=== PATIENT | female | born 1950 | race Caucasian/White ===

== ENCOUNTER 2019-10-02 11:48 | Emergency (ER) | payer MEDICARE, SELFPAY ==
[2019-10-02 11:47] VITALS: BP 125/81; PULSE 92; RESP 20; TEMP 37.1; O2SAT 97
--- NOTE | 2019-10-02 11:53 | ECG_ITS ---
Measurements Intervals Reserve Rate: 86 P: 43 ID: [id number] QRS: 4 QRSD: 96 T: 79 QT: 332 QTc: 398 Interpretive Statements SINUS RHYTHM NONSPECIFIC T-WAVE ABNORMALITY- ANT/INF LEADS BASELINE ARTIFACT- I, III, AVL, AVF BORDERLINE ECG Electronically Signed On 10-02-2019 12:43:31 CDT by Jakub Mcconnell D.O.
[2019-10-02 11:55] VITALS: BP 110/71; PULSE 90
[2019-10-02 11:56] VITALS: BP 115/73; PULSE 95
[2019-10-02 11:57] VITALS: BP 121/83; PULSE 98
[2019-10-02 12:30] LABS: Basophils Percent Auto 0.4 % (0.2-1.2); Eosinophils Absolute Auto 0.1 K/mm3 (0-0.3); Eosinophils Percent Auto 1.2 % (0-4.4); Immature Granulocyte Absolute 0.02 K/mm3 (0.00-0.031); Immature Granulocyte Percent A 0.2 % (0-0.5); Lymphocytes Absolute Auto 1.74 K/mm3 (0.9-3.2); Lymphocytes Percent Auto 19.3 % (18.3-44.2); Mean Corpuscular HGB Conc 32.5 g/dl (32-36); Mean Corpuscular Hemoglobin 30.2 pg (26-34); Mean Corpuscular Volume 92.8 fl (80-100); Mean Platelet Volume 9.6 fl (7.4-10.4); Monocytes Absolute Auto 0.4 K/mm3 (0.1-0.6); Monocytes Percent Auto 4.8 % (2.6-8.5); Neutrophils Absolute Auto 6.7 K/mm3 (1.3-6.7); Neutrophils Percent Auto 74.1 % (45.5-73.1); Platelet Count Result 277 k/mm3 (150-375); Red Blood Count 4.31 M/mm3 (4.2-5.4); Red Cell Distribution Width 13.2 % (11.5-14.5)
[2019-10-02 12:42] LABS: Blood Urea Nitrogen 22 mg/dL (7-17); Carbon Dioxide 27 mmol/L (22-30); Chloride 103 mmol/L (98-107); Estimated Glomerular Filt Rate > 60; Glucose 126 mg/dL (65-105); Potassium 3.8 mmol/L (3.4-5.0); Sodium 138 mmol/L (137-145)
--- NOTE | 2019-10-02 13:05 | ED.SYNCOPE ---
HPI - Syncope General Chief Complaint: Syncope Stated Complaint: SYNCOPE Time Seen by Provider: 10/02/19 12:47 History of Present Illness HPI narrative: Patient presents via EMS with her for a near syncopal episode at [facility]. She was done shopping and was in the checkout line when she felt hot. She thought she might faint so they brought her chair. Her blood pressure was 158 at the time. She had no visual changes or mental confusion. Her symptoms had decreased by the time EMS arrived, and her pressure was 129. She has no symptoms currently. She had a similar episode many years ago, when she fainted in the heat. She has not been sick in the last couple weeks. She takes medicine for her blood pressure and diabetes. She has had right knee replacement. She does not smoke drink or do drugs. She is a retired daycare worker. complaint: felt faint Onset (ago): hour(s) -: minutes(s) Prodromal symptoms: lightheaded Witnessed: Yes - by Bystander Context: standing up Current symptoms: none History: previous syncopal episode Treatments prior to arrival: none Related Data Home Medications Medication Instructions Recorded Confirmed atorvastatin 20 mg tablet 20 mg PO DAILY 03/14/19 08/21/19 lisinopril 20 mg tablet 20 mg PO DAILY 03/14/19 08/21/19 metformin 500 mg tablet,extended 1,000 mg PO QPM tablet 03/14/19 08/21/19 release 24 hr sertraline 50 mg tablet 50 mg PO DAILY 03/14/19 08/21/19 methocarbamol 500 mg tablet 500 mg PO TID PRN 04/17/19 08/21/19 Allergies Allergy/AdvReac Type Severity Reaction Status Date / Time codeine Allergy Unknown Unknown Verified 10/02/19 11:52 Review of Systems Review of Systems: Narrative: CONSTITUTIONAL: Denies fever, chills, or sweats. EYES: Denies visual changes, redness, or discharge. ENT: Denies rhinorrhea, congestion, sore throat, or otalgia. CARDIOVASCULAR: Denies chest pain, palpitations, or edema. RESPIRATORY: Denies cough or dyspnea. GASTROINTESTINAL: Denies abdominal pain, nausea, vomiting, or diarrhea. GENITOURINARY: Denies dysuria or hematuria. SKIN: Denies rash or itching. MUSCULOSKELETAL: Denies back pain, joint pain, or myalgia. NEUROLOGIC: Denies headache, numbness, or weakness. PSYCHIATRIC: Denies anxiety or depression. She is thirsty. [facility] Past Medical History Medical History (Updated 10/02/19 @ 13:12 by Kyra Juarez MD) Essential (primary) hypertension GERD (gastroesophageal reflux disease) Mixed hyperlipidemia Primary osteoarthritis of both knees Surgical History Surgical History (Updated 10/02/19 @ 13:09 by Kyra Juarez MD) History of right knee surgery Family History Family History (Updated 09/27/18 @ 10:59 by DOCTOR UNKNOWN) Mother Hypertension Family history of cardiovascular disease, Onset Age: 84 Father Patient's father is , Onset Age: 95 Acute myocardial infarction Social History Social History (Updated 10/02/19 @ 13:09 by Kyra Juarez MD) Smoking status: Former smoker Smoking end date: 05/01/77 Alcohol intake: never Substance use: never Exam Narrative: Exam Narrative: GENERAL: Well-appearing, well-nourished, and in no acute distress. Fozia lady in no distress. HEAD: Normocephalic, atraumatic. EYES: PERRLA and EOMI. ENT: Nares clear, no rhinorrhea or epistaxis. Mucous membranes moist. NECK: Supple. CHEST: Clear to auscultation. No respiratory distress. HEART: Regular rate and rhythm. No murmur heard. Normal peripheral pulses. ABDOMEN: Soft, nontender, nondistended, normal active bowel sounds. EXTREMITIES: Normal range of motion. No edema. SKIN: Warm, dry, no rash. NEURO: No focal deficits. Alert and oriented x3. PSYCH: Normal mood and affect. Course Reevaluation(s) Reevaluation #1: Reviewed the results with the patient and her . Encouraged her to keep water handy and follow-up with her primary care physician. Date: 10/02/19 Time: 13:15 Vital Signs Vital signs: Vital Si
[2019-10-02 13:22] VITALS: BP 127/80; PULSE 70; RESP 20; TEMP 36.7; O2SAT 99
== END 2019-10-02 13:23 | disposition home or self-care (01) ==
PROVIDERS: Emergency Medicine; Emergency Provider Emergency Medicine; PCP Family Medicine
DX: R55 Syncope and collapse (principal); I10 Essential (primary) hypertension; E11.9 Type 2 diabetes mellitus without complications; Z79.84 Long term (current) use of oral hypoglycemic drugs; Z96.651 Presence of right artificial knee joint; Z87.891 Personal history of nicotine dependence; K21.9 Gastro-esophageal reflux disease without esophagitis; E78.2 Mixed hyperlipidemia; M17.0 Bilateral primary osteoarthritis of knee; R94.31 Abnormal electrocardiogram [ECG] [EKG]
CPT/HCPCS: 36415; 80048; 85025; 93005; 99284

== ENCOUNTER 2020-07-07 08:07 | Outpatient (CLI) | payer MEDICARE, SELFPAY | END 2020-07-07 08:08 | disposition home or self-care (01) | LOC: ANHCOVIDVC 08:07 | PROVIDERS: PCP Family Medicine | DX: Z23 Encounter for immunization (principal) | CPT/HCPCS: 0001A; 91300 ==

== ENCOUNTER 2020-07-28 08:15 | Outpatient (CLI) | payer MEDICARE, SELFPAY | END 2020-07-28 08:16 | disposition home or self-care (01) | LOC: ANHCOVIDVC 08:15 | PROVIDERS: PCP Family Medicine | DX: Z23 Encounter for immunization (principal) | CPT/HCPCS: 0002A; 91300 ==

== ENCOUNTER → 2020-08-25 12:31 | Outpatient (CLI) | payer MEDICARE, SELFPAY ==
--- NOTE | ~2020-08-25 | MM_ITS ---
EXAMINATION: MM screening [facility] BI w salvatore HISTORY: Screening mammogram TECHNIQUE: Craniocaudal and mediolateral oblique 3-D tomosynthesis images were obtained and synthetic 2-D images were generated. CAD analysis was submitted and interpreted. COMPARISON: 12/17/2015, 08/06/2013 bilateral digital screening mammogram examinations BREAST PARENCHYMAL COMPOSITION: The breasts are almost entirely fatty. FINDINGS: There is no evidence of suspicious mass, calcification, or architectural distortion to sugg est malignancy in either breast. There has been no suspicious interval change. IMPRESSION: 1. No mammographic evidence of malignancy. 2. Recommend routine screening mammography in one year. BI-RADS Category 1: Negative Reviewed, dictated and finalized at location A.
--- NOTE | ~2020-08-25 | DEXA_ITS ---
Bone Density Report Name: Anjali Salgado Age: 69 Sex: Female Ethnicity: White Date of : 1950 Indication: postmenopausal; screening for osteoporosis; height loss; prior fracture; Referring Provider: Shantel Harris Study: Bone densitometry was performed. Exam Date: August 25, 2020 Accession number: [id number] Bone Density: Region BMD T-score Z-score Classification AP Spine (L1-L4) 1.101 0.5 2.5 Normal Femoral Neck (Left) 0.780 -0.6 1.1 Normal Total Hip (Left) 1.144 1.7 3.1 Normal Femoral Neck (Right) 0.718 -1.2 0.5 Osteopenia Total Hip (Right) 1.194 2.1 3.5 Normal Total Hip Mean 1.169 1.9 3.3 Normal World Health Organization criteria for BMD impression classify patients as: Normal (T-score at or above -1.0), Osteopenia (T-score between -1.0 and -2.5), or Osteoporosis (T-score at or below -2.5). 10-year Fracture Risk(1): Major Osteoporotic Fracture 13% Hip Fracture 1.3% Reported Risk Factors: [place] (), Neck BMD=0.718, BMI=36.2, previous fracture (1) FRAX(R) Version 3.08. Fracture probability calculated for an untreated patient. Fracture probability may be lower if the patient has received treatment. Previous Exams: Region Exam Age BMD T-score BMD Change BMD Change Date g/cm2 vs Baseline vs Previous AP Spine(L1-L4) 08/25/2020 69 1.101 0.5 0.076 0.012 12/17/2015 65 1.089 0.4 0.063 0.063 04/28/2010 59 1.025 -0.2 Total Hip(Left) 08/25/2020 69 1.144 1.7 -0.029 -0.032* 12/17/2015 65 1.176 1.9 0.003 0.003 04/28/2010 59 1.173 1.9 Total Hip(Right) 08/25/2020 69 1.194 2.1 -0.002 -0.007 12/17/2015 65 1.201 2.1 0.005 0.005 04/28/2010 59 1.196 2.1 *Denotes significance at 95% confidence level, LSC for AP Spine = 0.022 g/cm2, LSC for Total Hip = 0.027 g/cm2 Clinical Information Provided by Patient: Has had a low trauma fracture Has used the following medications: Vitamin D, Calcium, MTV Patient maximum height was 66.0 Menopause Age: 54 No regular weight bearing exercise Drinks caffeinated beverages Onset of menses at age 15 Number of children 3 Impression: The patient has low bone mass, based on the Right Femoral Neck T-score. The patient has an estimated ten-year risk of hip fracture of 1.3% and an estimated ten-year risk of major fracture of 13%, based on
== END ==
PROVIDERS: PCP Family Medicine; Visit Provider Obstetrics & Gynecology
DX: Z12.31 Encounter for screening mammogram for malignant neoplasm of breast (principal); Z13.820 Encounter for screening for osteoporosis; Z78.0 Asymptomatic menopausal state; M85.851 Other specified disorders of bone density and structure, right thigh
CPT/HCPCS: 77063; 77067; 77080

== ENCOUNTER 2020-12-27 13:08 | Outpatient (CLI) | payer MEDICARE, SELFPAY ==
--- NOTE | ~2020-12-27 | MR_ITS ---
EXAMINATION: MR hip LT wo con DATE: 12/27/2020 14:02 INDICATION: Left hip pain. Low back pain. TECHNIQUE: Magnetic resonance imaging (MRI) of the left hip was performed without intravenous contras t. Sequences included axial and coronal PD-weighted FS FSE and axial T1-weighted FSE of the pelvis. S equences of the hip included 2D FIESTA, T1-weighted fast GRE, and axial, coronal, and sagittal PD-ifeoma ghted FS FSE. COMPARISON: None FINDINGS: Bones/cartilage: There is 6 degrees lumbar levocurvature and moderate lumbar spondylosis. No fracture. The hip joints demonstrate mild osteoarthritis bilaterally. Small [id number] images of left hip demonstrate parti al thickness cartilage loss and marginal osteophytes. Labrum: There is a tear of left acetabular labrum. Fluid: There are small bilateral hip joint effusions. There is moderate bilateral trochanteric bursitis. Soft tissues: There are partial tears of the hamstring origins bilaterally. The iliopsoas tendons are normal. There are partial tears of the gluteus minimus and gluteus medius tendons bilaterally. The musculature is unremarkable. IMPRESSION: 1. Mild osteoarthritis of the hips. 2. Small bilateral hip joint effusions. 3. Moderate bilateral trochanteric bursitis. 4. Changes of prior partial tears of the bilateral gluteus minimus and medius muscles and hamstring t endon origins. Reviewed, dictated and finalized at location A. IMPRESSION: 1. Mild osteoarthritis of the hips. 2. Small bilateral hip joint effusions. 3. Moderate bilateral trochanteric bursitis. 4. Changes of prior partial tears of the bilateral gluteus minimus and medius m uscles and hamstring tendon origins.
== END 2020-12-27 13:09 | disposition home or self-care (01) ==
PROVIDERS: PCP Family Medicine
DX: M54.5 Low back pain (principal); M25.551 Pain in right hip; M16.0 Bilateral primary osteoarthritis of hip; M25.452 Effusion, left hip; M25.451 Effusion, right hip; M71.552 Other bursitis, not elsewhere classified, left hip; M71.551 Other bursitis, not elsewhere classified, right hip; S76.012A Strain of muscle, fascia and tendon of left hip, initial encounter; S76.011A Strain of muscle, fascia and tendon of right hip, initial encounter
CPT/HCPCS: 73721

== ENCOUNTER → 2021-09-16 14:48 | Outpatient (CLI) | payer MEDICARE, SELFPAY ==
--- NOTE | ~2021-09-16 | MM_ITS ---
EXAMINATION: MM screening [facility] BI w salvatore HISTORY: Screening mammogram TECHNIQUE: Craniocaudal and mediolateral oblique 3-D tomosynthesis images were obtained and synthetic 2-D images were generated. CAD analysis was submitted and interpreted. COMPARISON: 08/25/2020, 12/17/2015, 08/06/2013 BREAST PARENCHYMAL COMPOSITION: There are scattered areas of fibroglandular density. FINDINGS: There is no suspicious mass, calcification, or architectural distortion to suggest malignan cy in either breast. There has been no suspicious interval change. IMPRESSION: 1. No mammographic evidence of malignancy. 2. Recommend routine screening mammography in one year. BI-RADS Category 1: Negative Reviewed, dictated and finalized at location A.
== END ==
PROVIDERS: PCP Family Medicine; Visit Provider Obstetrics & Gynecology
DX: Z12.31 Encounter for screening mammogram for malignant neoplasm of breast (principal)
CPT/HCPCS: 77063; 77067

== ENCOUNTER → 2022-07-12 11:43 | Outpatient (CLI) | payer MEDICARE, SELFPAY ==
--- NOTE | ~2022-07-12 | XR_ITS ---
EXAM: XR foot RT min 3V DATE: 07/12/2022 11:58 HISTORY: M72.2 - Plantar fascial fibromatosis . COMPARISON: None available. FINDINGS: Decreased mineralization. No fracture or dislocation. No lytic or blastic lesion. Degenera tive change at the tibiotalar joint, first MTP joint, and multiple midfoot joints. Achilles and plant ar enthesopathy. No erosion or periosteal change. Focal calcification along the plantar fascia. IMPRESSION: Polyarticular osteoarthritis of the foot. Plantar enthesopathy and plantar calcification. Reviewed, dictated and finalized at location K.
== END ==
PROVIDERS: PCP Family Medicine; Visit Provider Family Medicine
DX: M72.2 Plantar fascial fibromatosis (principal); M19.071 Primary osteoarthritis, right ankle and foot
CPT/HCPCS: 73630

== ENCOUNTER → 2022-11-18 12:15 | Outpatient (CLI) | payer MEDICARE, SELFPAY ==
--- NOTE | ~2022-11-18 | MM_ITS ---
EXAMINATION: MM screening [facility] BI w salvatore HISTORY: Screening TECHNIQUE: Craniocaudal and mediolateral oblique 3-D tomosynthesis images were obtained and synthetic 2-D images were generated. CAD analysis was submitted and interpreted. COMPARISON: Comparison to multiple prior studies sequentially, with oldest reviewed study dated 11/2013. BREAST PARENCHYMAL COMPOSITION: The breasts are almost entirely fatty. FINDINGS: There is no evidence of suspicious mass, calcification, or architectural distortion to sugg est malignancy in either breast. There has been no suspicious interval change. IMPRESSION: 1. No mammographic evidence of malignancy. 2. Recommend routine screening mammography in one year. BI-RADS Category 1: Negative Reviewed, dictated and finalized at location A.
== END ==
PROVIDERS: PCP Obstetrics & Gynecology; Visit Provider Obstetrics & Gynecology
DX: Z12.31 Encounter for screening mammogram for malignant neoplasm of breast (principal)
CPT/HCPCS: 77063; 77067

== ENCOUNTER → 2022-12-08 12:29 | Outpatient (CLI) | payer MEDICARE, SELFPAY ==
--- NOTE | ~2022-12-08 | MR_ITS ---
MRI of the left hip Clinical history: Pain Technique: Coronal T1-weighted, T2-weighted, and proton-density fat-sat images, and axial T1-weighted and proton-density fat-sat images were acquired through the pelvis. Coronal T2-weighted images and c oronal, axial, and sagittal proton-density fat-sat images were acquired through the left hip. Findings: There is no fracture, avascular necrosis, or transient osteoporosis of either hip. There is diffuse moderate to high-grade chondromalacia of the left hip joint. Right hip joint is intact. No j oint effusion. No definite left acetabular labral tear identified. Visualized musculature about the pelvis and left hip is unremarkable. No muscle atrophy or edema. The re is probable low-grade chronic partial tearing of the bilateral enhancing tendon origins, right wor se than left. No soft tissue mass or fluid collection seen. No evidence for bursitis. 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 No fracture or abnormal marrow edema. Reviewed, dictated and finalized at [facility].
== END ==
PROVIDERS: PCP Family Medicine; Visit Provider Orthopaedic Surgery
DX: M25.552 Pain in left hip (principal)
CPT/HCPCS: 73721

== ENCOUNTER 2024-02-22 09:37 | Outpatient (CLI) | payer MEDICARE, SELFPAY ==
--- NOTE | ~2024-02-22 | MM_ITS ---
EXAMINATION: MM screening [facility] BI w salvatore HISTORY: Screening TECHNIQUE: Craniocaudal and mediolateral oblique 3-D tomosynthesis images were obtained and synthetic 2-D images were generated. CAD analysis was submitted and interpreted. COMPARISON: Comparison to multiple prior studies sequentially, with oldest reviewed study dated 12/16. BREAST PARENCHYMAL COMPOSITION: Not Dense: The breasts are almost entirely fatty. FINDINGS: There is no evidence of suspicious mass, calcification, or architectural distortion to sugg est malignancy in either breast. There has been no suspicious interval change. IMPRESSION: 1. No mammographic evidence of malignancy. 2. Recommend routine screening mammography in one year. BI-RADS Category 1: Negative Reviewed, dictated and finalized at location B.
== END 2024-02-22 09:38 | disposition home or self-care (01) ==
LOC: MICIMG 09:38
PROVIDERS: PCP Family Medicine; Visit Provider Obstetrics & Gynecology
DX: Z12.31 Encounter for screening mammogram for malignant neoplasm of breast (principal)
CPT/HCPCS: 77063; 77067

== ENCOUNTER 2025-04-04 14:49 | Outpatient (CLI) | payer MEDICARE, SELFPAY ==
--- NOTE | ~2025-04-04 | MM_ITS ---
EXAMINATION: MM screening [facility] BI w salvatore HISTORY: Screening. TECHNIQUE: Craniocaudal and mediolateral oblique 3-D tomosynthesis images were obtained and synthetic 2-D images were generated. CAD analysis was submitted and interpreted. COMPARISON: 2023, 2022, and 2021. BREAST PARENCHYMAL COMPOSITION: Not Dense: The breasts are almost entirely fatty FINDINGS: No suspicious masses are seen. There are no suspicious calcifications. No unexplained architectural distortion is seen. There are no skin or nipple abnormalities identified. There is no adenopathy seen on the images submitted. IMPRESSION: No mammographic or sonographic evidence to suggest malignancy is seen. The patient may return to screening mammography as per ACR guidelines. BI-RADS 1 - Negative. Reviewed, dictated and finalized at location B. [employer] IMPRESSION: No mammographic or sonographic evidence to suggest malignancy is seen. The veronica ent may return to screening mammography as per ACR guidelines. BI-RADS 1 - Negative.
== END 2025-04-04 14:50 | disposition home or self-care (01) ==
PROVIDERS: PCP Obstetrics & Gynecology; Visit Provider Obstetrics & Gynecology
DX: Z12.31 Encounter for screening mammogram for malignant neoplasm of breast (principal)
CPT/HCPCS: 77063; 77067